=== PATIENT | male | born 1985 | race Caucasian/White ===

== ENCOUNTER 2018-12-09 17:58 | Emergency (ER) | payer OTHER, SELFPAY ==
[2018-12-09 18:06] VITALS: BP 125/55; PULSE 74; RESP 15; TEMP 36.5; O2SAT 97; BMI 23.8
--- NOTE | 2018-12-09 18:06 | DI.RAD.S_ITS ---
PROCEDURE: XR WRIST RT MIN 3V INDICATIONS: wrist deformity TECHNIQUE: 4 views of the wrist were acquired. COMPARISON: [facility], CR, XR FOREARM RT 2V, 12/09/2018, 18:14. FINDINGS: Bones: There is a comminuted intra-articular fracture of the distal radius, with impacted fragments and moderate dorsal angulation. No definite accompanying distal ulna fracture can be seen. No radiocarpal dislocation can be seen. No suspicious lytic or blastic lesions are seen. Scaphoid view: No navicular fractures are seen. Soft tissues: No suspicious soft tissue calcifications. IMPRESSION: Comminuted, intra-articular distal radius fracture. There is moderate dorsal angulation of the distal fracture fragments in relation to the radial shaft. If it would be helpful for clinical management decision making, please consider a dedicated wrist CT for further evaluation. Dictated by: Derrick Blair M.D. on 12/09/2018 at 18:51 Approved by: Derrick Blair M.D. on 12/09/2018 at 18:52
[2018-12-09 18:09] VITALS: BP 127/82; PULSE 67; RESP 20; O2SAT 98
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
[2018-12-09] MEDS: HYDROMORPHONE 1 MG INJ IM (19:23)
[2018-12-09] MEDS: HYDROCODONE/ACET 5/325 PREPACK 1 BOTTLE MISC (20:17)
[2018-12-09 20:24] VITALS: BP 106/73; PULSE 68; RESP 16; O2SAT 100
== END 2018-12-09 20:27 | disposition home or self-care (01) ==
PROVIDERS: Emergency Provider Emergency Medicine
DX: S52.501A Unspecified fracture of the lower end of right radius, initial encounter for closed fracture (principal); S50.812A Abrasion of left forearm, initial encounter; S50.811A Abrasion of right forearm, initial encounter; V29.9XXA Motorcycle rider (driver) (passenger) injured in unspecified traffic accident, initial encounter
CPT/HCPCS: 73090; 73110; 96372; 99283; J1170